=== PATIENT | male | born 2000 | race Caucasian/White ===

== ENCOUNTER 2024-07-02 11:15 | Emergency (ER) | payer OTHER, SELFPAY ==
--- NOTE | ~2024-07-02 | XR_ITS ---
EXAMINATION: XR finger 4th RT min 2V DATE: 07/02/2024 13:12 INDICATION: Nontraumatic pain at the right fourth digit TECHNIQUE: Dorsal palmar, lateral and oblique views of the right fourth digit were obtained. COMPARISON: None FINDINGS: Bone alignment is normal. No fracture. Joint spaces are normal. No cortical erosions or periosteal re action. There is soft tissue swelling at the right hand appears centered at the fourth proximal inter phalangeal joint. No soft tissue gas or radiopaque foreign bodies. IMPRESSION: 1. No osseous abnormality. Reviewed, dictated and finalized at location A. IMPRESSION: 1. No osseous abnormality.
[2024-07-02 12:12] VITALS: BP 120/60; PULSE 107; RESP 18; TEMP 37.1; O2SAT 98
--- NOTE | 2024-07-02 12:15 | PC.NURSE ---
Reports told to come to ED by UC because he probably has sepsis
[2024-07-02 12:36] LABS: Basophils Absolute Auto 0.1 K/mm3 (0.0-0.1); Basophils Percent Auto 0.3 % (0.2-1.2); Eosinophils Percent Auto 0.2 % (0-4.4); Hematocrit 48.1 % (42.0-52.0); Hemoglobin 15.9 g/dL (14.0-18.0); Immature Granulocyte Percent A 0.6 % (0-0.5); Lymphocytes Absolute Auto 1.22 K/mm3 (0.9-3.2); Lymphocytes Percent Auto 7.7 % (18.3-44.2); Mean Corpuscular HGB Conc 33.1 g/dl (32-36); Mean Corpuscular Hemoglobin 29.1 pg (26-34); Mean Corpuscular Volume 87.9 fl (80-100); Mean Platelet Volume 9.3 fl (7.4-10.4); Monocytes Absolute Auto 1.3 K/mm3 (0.1-0.6); Monocytes Percent Auto 8.4 % (2.6-8.5); Neutrophils Absolute Auto 13.2 K/mm3 (1.3-6.7); Neutrophils Percent Auto 82.8 % (45.5-73.1); Platelet Count Result 193 k/mm3 (150-375); Red Blood Count 5.47 M/mm3 (4.6-6.20); Red Cell Distribution Width 13.2 % (11.5-14.5); White Blood Count 15.9 K/mm3 (4.5-10.0)
--- NOTE | 2024-07-02 12:43 | ED.GENADULT ---
HPI - General Adult General Chief complaint: Skin/Abscess/Foreign Body Stated complaint: right ring finger swelling Time Seen by Provider: 07/02/24 12:43 Source: patient Mode of arrival: ambulatory Limitations: no limitations History of Present Illness HPI narrative: 23 years old white male came to the ED by private car complaining of pain, swelling of the right ring finger wake him up at o'clock in the morning. Patient have a Colles at the palmar side of that finger, patient been picking on it lately. Patient is healthy otherwise Related Data Allergies Allergy/AdvReac Type Severity Reaction Status Date / Time No Known Allergies Allergy Verified 07/02/24 11:18 Review of Systems Review of Systems: All systems reviewed & are unremarkable except as noted in HPI and below Exam Narrative: General appearance: Well-developed, well-nourished Skin: Normal color Head: Normocephalic, nontraumatic Eyes: Clear conjunctiva ENT: Oropharynx normal, ears normal, nose normal Neck: Supple, nontender Chest and respiratory: Airway patent, no respiratory distress, no accessory muscle use Heart: Regular rate/rhythm Abdomen: Soft, nontender, no organomegaly, quiet bowel sounds Vascular: Normal peripheral pulses, normal capillary refill. Musculoskeletal: Right ring finger exam showing diffuse tenderness, swelling, redness, warmth of the distal palm and proximal phalanx with yellowish discoloration superficially. Finger in a flexion position, unable to extend Neurologic: Alert and oriented ?3, THERMODYNAMICIST is normal as tested, no gross motor deficit Course Consultations Consultation #1: dr damon Not available over this week and Date: 07/02/24 Consultation #2: DR ANNE PLASTIC SURGEON AT [facility] WHO ACCEPTED PATIENT TRANSFER Date: 07/02/24 Consultation #3: DR HI ED AT [facility] WHO ACCEPTED PATIENT TRANSFER Date: 07/02/24 Vital Signs Vital signs: Vital Signs Temperature 37.1 C 07/02/24 12:12 Pulse Rate 107 H 07/02/24 12:12 Respiratory Rate 18 07/02/24 12:12 Blood Pressure 120/60 07/02/24 12:12 Pulse Oximetry 98 07/02/24 12:12 Oxygen Delivery Room Air 07/02/24 12:12 Temperature 37.1 C 07/02/24 12:12 Pulse Rate 107 H 07/02/24 12:12 Respiratory Rate 18 07/02/24 12:12 Blood Pressure 120/60 07/02/24 12:12 Pulse Oximetry 98 07/02/24 12:12 Oxygen Delivery Room Air 07/02/24 12:12 Medical Decision Making MDM Narrative Medical decision making narrative: Patient came to the ED with pain and swelling of the right 4th finger, Vital signs showing heart rate of 107 otherwise within normal limit Physical examination showing diffuse pain and swelling of the right 4th finger and of the hand around the finger at the dorsal side and the palmar side. Blood workup showing WBC of 15 point 9 otherwise insignificant X-ray of the right hand showed no acute osseous abnormality Patient received vancomycin IV prior to transferred to [facility]. Vital Signs Vital Signs: Vital Signs Temperature 37.1 C 07/02/24 12:12 Pulse Rate 107 H 07/02/24 12:12 Respiratory Rate 18 07/02/24 12:12 Blood Pressure 120/60 07/02/24 12:12 Pulse Oximetry 98 07/02/24 12:12 Oxygen Delivery Room Air 07/02/24 12:12 Temperature 37.1 C 07/02/24 12:12 Pulse Rate 107 H 07/02/24 12:12 Respiratory Rate 18 07/02/24 12:12 Blood Pressure 120/60 07/02/24 12:12 Pulse Oximetry 98 07/02/24 12:12 Oxygen Delivery Room Air 07/02/24 12:12 Lab Data 07/02/24 12:26 07/02/24 12:26 Labs: Lab Results 07/02/24 Range/Units 12:26 WBC 15.9 H (4.5-10.0) K/mm3 RBC 5.47 (4.6-6.20) M/mm3 Hgb 15.9 (14.0-18.0) g/dL Hct 48.1 (42.0-52.0) % MCV 87.9 (80-100) fl MCH 29.1 (26-34) pg MCHC 33.1 (32-36) g/dl RDW 13.2 (11.5-14.5) % Plt Count 193 (150-375) k/mm3 MPV 9.3 (7.4-10.4) fl Immature Gran % (Auto) 0.6 H (0-0.5) % Neut % (Auto) 82.8 H (45.5-73.1) % Lymph % (Auto) 7.7 L (18.3-44.2) % York % (Auto) 8.4 (2.6-8.5) % Eos % (Auto) 0.2 (0-4.4) % Baso % (Auto) 0.3 (0.2-1.2) % Lymph # (Auto) 1.22 (0.9-3.2) K/mm3 York # (Auto) 1.3 H (0.1-0.6) K/mm3 Eos # (Auto) 0.0 (0-0.3) K/mm3 Baso # (Auto) 0.1 (0.0-0.1) K/mm3 Abs Immat Gran (auto) 0.10 H (0.00-0.031) K/mm3 Absolute Neuts (auto) 13.2 H (1.3-6.7) K/mm3 Absolute Nucleated RBC 0.000 (0.0-0.012) K/mm3 Nucleated RBC % 0.0 (0.0-0.2) % ESR 1 (0-20) mm/hr Sodium 136 L (137-145) mmol/L Potassium 3.8 (3.4-5.0) mmol/L Chloride 99 (98-107) mmol/L Carbon Dioxide 27 (22-30) mmol/L Anion Gap 10 (4-12) mmol/L BUN 18 (9-20) mg/dL Creatinine 0.96 (0.7-1.3) mg/dL Estim Creat Clear Calc 121 ml/min Estimated GFR > 60 (59 - ) Glucose 98 (65-110) mg/dL Lactic Acid 1.1 (0.7-2.0) mmol/L Calcium 9.4 (8.4-10.2) mg/dL Total Bilirubin 2.0 H (0.2-1.3) mg/dL AST 46 (17-59) U/L ALT 31 (6-50) U/L Alkaline Phosphatase 90 (38-126) U/L C-Reactive Protein 1.0 (<1.0) mg/dL Total Protein 8.0 (6.3-8.2) g/dL Albumin 5.1 (3.5-5.1) g/dL Critical Care Time Critical Care Time Critical Care Time: Yes Total Critical Care Time: 30 Discharge Plan Discharge Clinical Impression: Finger infection Patient Disposition: Acute Care Hospital Condition: Stable Patient Language: Belizean Follow-up/Referrals: PHYSICIAN NOT ON STAFF,NONSTAFF [Primary Care Provider] -
[2024-07-02 12:45] LABS: Lactic Acid Reflex 1.1 mmol/L (0.7-2.0)
[2024-07-02 12:46] LABS: Alanine Aminotransferase 31 U/L (6-50); Albumin Level 5.1 g/dL (3.5-5.1); Alkaline Phosphatase 90 U/L (38-126); Anion Gap 10 mmol/L (4-12); Aspartate Amino Transferase 46 U/L (17-59); Blood Urea Nitrogen 18 mg/dL (9-20); Calcium 9.4 mg/dL (8.4-10.2); Carbon Dioxide 27 mmol/L (22-30); Chloride 99 mmol/L (98-107); Estimated CRCL calculation 121 ml/min; Estimated Glomerular Filt Rate > 60; Glucose 98 mg/dL (65-110); Potassium 3.8 mmol/L (3.4-5.0); Sodium 136 mmol/L (137-145)
--- OUTSIDE RECORDS SUMMARY | 2024-07-02 12:56 | XMS_ITS | Referral Summary ---
Author Organization [address] Address [address] [place] [id number] Care Team Providers Care Daycare Worker Name Role Phone Mulugeta Amaro MD Primary Care Provider Encounters Date Type Department Care Team Description 07/02/2024 10:45 AM CDT Office Visit [facility] at [address] [phone] Mary Grace Monreal NP Cellulitis of right upper extremity (Primary Dx); Tachycardia; Tachypnea from Last 3 Months Allergies No known active allergies Medications No known medications Active Problems No known active problems Social History Tobacco Use Types Packs/Day Years Used Date Smoking Tobacco: Never Assessed Sex and Gender Information Value Date Recorded Sex Assigned at Not on file Legal Sex Male 10:28 AM CDT Gender Identity Not on file Sexual Orientation Not on file Last Filed Vital Signs Vital Sign Reading Time Taken Comments Blood Pressure 102/68 07/02/2024 10:39 AM CDT Pulse 124 07/02/2024 11:04 AM CDT Temperature 36.9 C (98.5 F) 07/02/2024 10:39 AM CDT Respiratory Rate 30 07/02/2024 11:04 AM CDT Oxygen Saturation 97% 07/02/2024 10:39 AM CDT Inhaled Oxygen Concentration - - Weight 82.1 kg (181 lb) 07/02/2024 10:39 AM CDT Height - - Body Mass Index - - Plan of Treatment Not on file Insurance [employer] PPO Care Teams Daycare Worker Relationship Specialty Start Date End Date Mulugeta Amaro MD [address] [place] [id number] PCP - General Family Medicine 07/02/24
--- OUTSIDE RECORDS SUMMARY | 2024-07-02 12:56 | XMS_ITS | Encounter Summary ---
Author Organization [facility] Address [address] [place] [address] Care Team Providers Care Domain Architect Name Role Phone Mulugeta Amaro MD Primary Care Provider Reason for Visit * Reason Comments hand swelling Hand bruising, swell ing, pain and redness started this AM. Pt reports he woke up at 4am with pain and also he's been hot and cold over night Encounter Details Date Type Department Care Team (Late st Contact Info) Description 07/02/2024 10:45 AM CDT Office Visit [facility] at [address] [phone] Mary Grace Monreal NP [address] [place] [address] [address] [place] [address] Cellulitis of right upper extremity (Primary Dx); Tachycardia; Tachypnea Social History Tobacco Use Types Packs/Day Years Used Date Smoking Tobacco: Never Assessed Sex and Gender Information Value Date Recorded Sex Assigned at Not on file Legal Sex Male 10:28 AM CDT Gender Identity Not on file Sexual Orientation Not on file documented as of this encounter Last Filed Vital Signs Vital Sign Reading [...] - - Body Mass Index - - documented in this encounter Progress Notes * Mary Grace Monreal NP - 07/02/2024 10:45 AM CDT Images from the original note were not included. Subjective/Objective Patient ID: Aakash Lucas is a 23 y.o. male. This patient has verbally consented to recording this visit in order to utilize AI technology in generating this note. Chief Complaint hand swelling (Hand bruising, swelling, pain and redness started this AM. Pt reports he woke up at 4am with pain and also he's been hot and cold over night ) History of Present Illness Aakash Lucas is a 23 year old male who presents with an acute infection of the finger. He experienced sudden swelling of the finger at 4 AM, which progressed to involve the knuckles by 6:45 AM. There is no history of trauma or injury to the finger. Systemic symptoms include chills and sweats, with sensations of being hot and cold throughout the night. He has not taken any medication for pain or other symptoms today. He is visiting the area for the weekend. Patient denies any traumato area. Review of Systems All other systems reviewed and are negative. Physical Exam GENERAL: Generally unwell appearance. CARDIOVASCULAR: Tachycardia. EXTREMITIES: Infection of the finger. Physical Exam Vitals and nursing note reviewed. Exam conducted with a supervising editor news reel present (Patient's brother). Constitutional: General: He is awake. Appearance: He is ill-appearing. Musculoskeletal: Hands: Comments: Patient has significant pain to palpation, pain with movement of hand and fingers on right hand. Skin: General: Skin is moist. Coloration: Skin is pale. Neurological: Mental Status: He is alert. Psychiatric: Behavior: Behavior is cooperative. Vitals: 07/02/24 1039 07/02/24 1104 BP: 102/68 Pulse: 122 124 Resp: 24 30 Temp: 36.9 ??C (98.5 ??F) SpO2: 97% Weight: 82.1 kg (181 lb) No results found. No past medical history on file. No current outpatient medications on file. No Known Allergies Social History Tobacco Use Smoking status: Not on file Smokeless tobacco: Not on file Substance and Sexual Activity Drug use: Not on file Sexual activity: Not on file Alcohol Use: Not on file No past surgical history on file. Procedures Assessment/Plan 1. Cellulitis of right upper extremity (Primary) 2. Tachycardia 3. Tachypnea Results Assessment & Plan Sepsis Acute systemic infection with chills, sweats, and tachycardia. Meets sepsis criteria, life-threatening, requires immediate intervention. - Refer to ER for immediate evaluation and management. - Order blood work and blood cultures. - Initiate IV antibiotics in ER. - Consider imaging for bone involvement. Finger infection Acute finger infection with swelling to knuckles, contributing to systemic symptoms and potential sepsis. - Document and photograph affected hand. - Refer to ER for evaluation and treatment. Disposition Treatment plan including expectations, follow up, and return precautions discussed with patient/parent, verbalizes understanding. Medication dosage, use, and potential adverse reactions discussed with patient/parent. Advised to follow up with PCP if symptoms do not resolve as expected or sooner if condition worsens. Signs/symptoms warranting ER evaluation reviewed. Patient and/or guardian was given an opportunity to ask questions, questions answered. Mary Grace Monreal NP This office note has been partially dictated using [employer] software, and as a result portions of the record may have been created with this software. Occasional wrong-word or '[id number]' substitutions may have occurred due to the inherent limitations of voice recognition software. Read the chartcarefully and recognize, using context, where substitutions have occurred. documented in this encounter Plan of Treatment Not on file documented as of this encounter Visit Diagnoses Diagnosis Cellulitis of right upper extremity- Primary Tachycardia Unspecified tachycardia Tachypnea documented in this encounter Care Teams Domain Architect Relationship Specialty Start Date End Date Mulugeta Amaro MD [address] [place] [id number] PCP - General Family Medicine 07/02/24 documented as of this encounter
--- OUTSIDE RECORDS SUMMARY | 2024-07-02 12:56 | XMS_ITS | Clinical Summary ---
Author Organization [address] Address [address] [place] [phone] Care Team Providers Care Fuel Cell Builder Name Role Phone Mulugeta Amaro MD Primary Care Provider Allergies No known active allergies Medications No known medications Active Problems No known active problems Encounters Date Type Department Care Team Description 07/02/2024 10:45 AM CDT Office Visit [facility] at [address] [phone] Mary Grace Monreal NP Cellulitis of right upper extremity (Primary Dx); Tachycardia; Tachypnea from Last 3 Months Social History Tobacco Use Types Packs/Day Years Used Date Smoking Tobacco: Never Assessed Sex and Gender Information Value Date Recorded Sex Assigned at Not on file Legal Sex Male 10:28 AM CDT Gender Identity Not on file Sexual Orientation Not on file Obstetrics History Last Filed Vital Signs Vital Sign Reading [...] Mass Index - - Plan of Treatment Health Maintenance Due Date Last Done Comments Depression Screening 2000 Hepatitis C Screening 2000 Regular Well Visit/Exam 18-64 2018 Meningococcal B Vaccine (2 of 2 - Trumenba SCDM 2-dose series) 05/11/2019 11/09/2018 DTaP/Tdap/Td Vaccine (7 - Td or Tdap) 07/08/2022 07/08/2012, 09/02/2006, 05/17/2002, Additional history exists Covid-19 Vaccine ( season) 2023 05/19/2021, 06/19/2020, 05/29/2020 Influenza Vaccine (Season Ended) 2024 01/28/2013 Pneumococcal vaccine <65 Aged Out 002, 2000, 2000 No longer eligible based on patient's age to complete this topic Hepatitis B Screening Completed 11/23/2001 , 2000, 2000 Varicella Vaccines Completed 09/02/2006, 11/23/2001 HPV Vaccines Completed 08/08/2013, 01/10, 09/16/2012 [place] [address] [facility] PPO Care Teams Fuel Cell Builder Relationship Specialty Start Date End Date Mulugeta Amaro MD [address] [place], [place] [id number] PCP - General Family Medicine 07/02/24
--- OUTSIDE RECORDS SUMMARY | 2024-07-02 12:57 | XMS_ITS | Data Portability ---
Author Organization [facility], [address] 4[address] Neurology ([place]) Address [address] 4th [place] [address] Care Team Providers Care District Loss Prevention Manager Name Role Phone VANESSAMIHIR FARFAN Primary Care Provider Assessment Encounter Date Assessment Date Assessment LastModified by Organization Details LastModified Time 01/13/2024 01/13/2024 IMPRESSION: Difficulty urinating. PLAN: Will refer him for pelvic floor physical therapy. I do not see any sign of obstruction or infection. Follow up in 6 months. 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 It drained, but on examination, there is nothing. CT unremarkable. Should he have further urachal cyst, we would treat it surgically[facility] Not available 01/13/2024 20:34:04 04/11/2024 04/11/2024 Urachal cyst he reports drainage from his umbilicus on 3 separate occasions most recently a month ago. Unremarkable on physical exam today. CT was negative. Dr. Vaca stated if he continues have problems and we will treat it surgically. I will discuss this case with Dr. Jimenez. Difficulty urinating, urgency, nocturia cystoscopy with Dr. Vaca on 01/13/2024 was negative. He was referred to pelvic floor therapy and has appoint with them next week. HISTORY OF PRESENT ILLNESS: A pleasant 23-year-old gentleman who presents today for followup on urachal cyst. Negative cystoscopy with DR Vaca in January 2024 to evaluate weak urine stream, difficulty starting a stream. He was evaluated at Urgent Care on 11/19/2023 and was treated for an acute urinary tract infection with 14 days of ciprofloxacin 500 mg b.i.d. and tamsulosin 0.4 mg once daily for 30 days. Since then, he reports improvement of his symptoms. His initial symptoms were difficulty starting a stream, straining with urination. He denies dysuria, gross hematuria, frequency. He reports he had nocturia. He had PVR 2 mL. he did not fill out an IPSS score. Urinalysis on 11/19/2023 showed 2+ bacteria and 2+ protein, bur urine culture was negative. Supposedly, he was told by Urgent Care there was sperm in his urinalysis. Per their note, they were concerned about a fistula. He denies pneumaturia or debris in his urine. Nonsmoker. No report of family history of prostate cancer, bladder cancer, or kidney cancer. He denies hematospermia. PSA 0.260 on 12/04/2023. REVIEW OF SYSTEMS CONST: No fevers or chills. RESP: No shortness of breath. CV: No chest pain. GI: No nausea, vomiting. Reviewed pertinent past medical history, surgical history, family history, social history. No changes except as noted. PHYSICAL EXAM CONST: The patient is alert and oriented. In no acute distress. EYES: Extraocular movements are intact. RESP: No respiratory distress. Symmetric chest expansion. GI: Abdomen is soft and nontender. No suprapubic or flank tenderness. No drainage from the umbilicus. MSK: There is no peripheral edema. SKIN: Skin warm and dry. Reviewed pertinent diagnostic tests, lab work, and imaging. These were reviewed with the patient. [email or web address] Not available 04/11/2024 14:42:53 04/25/2024 04/25/2024 Physical therapy assessment: Patient presents with elevated resting pelvic floor tone and myofascial tightness in pelvic floor. Patient has poor awareness or motor control of the pelvic floor. Patient was guarded with palpation Comorbidities: Weak abdominal musculature from excessive weight loss with excessive skin tissue poor awareness of the pelvic floor and lower abdominals with weakness. As a result patient has difficulty with urination but has improved since symptoms began Patient to be seen 1-2 visits over the course of 3 weeks. Patient unable to keep coming and his symptoms have improved Treatment will consist of the following: Therapeutic exercise Relaxation of the pelvic floor reeducation of the pelvic floor lower abdominals strengthening Manual therapy Myofascial release as needed Home exercise program was issued today and will be updated each visit as patient tolerates The above rehabilitation plan has been prescribed and developed for the necessary care of this patient. Patient is in agreement with this plan. Thank you for this referral. [email or web address] Not available 06/05/2024 16:49:52 05/12/2024 05/12/2024 Physical therapy assessment: Patient returns today with poor pelvic floor awareness and elevated tone as well as impaired diaphragmatic breathing or release of the pelvic floor with inspiration and core strength in the abdominal wall and lower abdominals impairing core stability which could contribute to an elevated resting pelvic floor tone. Patient lost a lot of weight which might be the reason for the decreased core strength and lumbopelvic stability deficits. Today I increased his exercises to include core stabilization strengthening of the lower abdominals. I recommend continuing with diaphragmatic breathing in positions where the hips are relaxed and less stress on the pelvic floor followed by reeducation exercises for the pelvic floor. Plan: Discharge as patient has difficulty coming to therapy and for the most part the immediate symptoms of inability to urinate is better he just has a little hesitancy with starting his stream. Patient was advised to return to physical therapy if symptomology got worse Not available 06/08/2024 22:12:09 Plan of Treatment Reminders Order Date Submit Date Provider Last Modified By Organization Details Last Modified Time Details Appointments Establish ed Patient 10.EST 2024 04:45P M Dr. Buzz Vaca Not available Not available Not available New Patient Visit 10.NEW 2024 11:40A M Dr. Johanna Bergman Not available Not available Not available Lab culture + sensitivi ty, urine 2023 024 NAYELI Sc Only - [facility] Laboratory, [address] [place] [address], [id number], 01/14/2024 15:19:39 urinalysi s, complete 2023 024 [email or web address] Sc Only - Sc Laboratory, [facility] [place] [address], [id number], 01/14/2024 08:23:15 cytology, urine 2023 024 [email or web address] Sc Only - Sc Laboratory, [address] [place] [address], [place], [address], 01/14/2024 08:23:15 Referral pelvic floor therapy referral - Difficult y urinating , hesitancy , urgency, nocturia 2023 024 Pelvic Floor/Therapy , [address], [place], [address], 02/29/2024 14:47:56 Procedures None recorded. Surgeries None recorded. Imaging electroca rdiogram, routine ECG, 12 leads min 2024 025 NAYELI Pr Only - Pr Cardiology Ekg, [address], [address] [address], [place], [address], 05/19/2024 17:15:32 Medication Orders naproxen 500 mg tablet,de layed release 2024 025 [id number], [address] [place], [id number], 05/19/2024 17:03:26 Bactrim DS 800 mg-160 mg tablet 2023 025 [id number], [address] [place], [place], [id number], 05/19/2024 16:49:50 Patient Targets Encounter Date Encounter Id Patient Goals Patient Target Last Modified By Organization Details Last Modified Time Goals:LTG's to be met in 3 weeks 2 visits 1.Independent with HEP Rehab potential: goodPatients goal: teach HEP for strengthening the lower abdominals with poor and reeducating the pelvic floor for relaxation and reeducation of strength [email or web address] Not available 06/05/2024 16:44:03 Patient Instructions Encounter Date Encounter Id Patient Instructions Last Modified By Organization Details Last Modified Time 05/19/2024 [id number] Subjective: HPI: Aakash is a very pleasant 23-year-old male who is here today with his ongoing chest wall discomfort/chest pain for the last few months. He notes that he started noticing this in October. It only ever occurs on the left side of his chest wall but can be in a different range of places. This pain never radiates down to his arm or up his neck. He describes it as more of an aching pain and at the worst is anywhere from a 5-7 on a pain scale of 1-10. Sometimes it happens when he exercises but he can also exercise without it happening. This will also happen when he is at rest. Nothing makes this better or worse. He can go a few days without it at times but it is pretty consistent. He declines any nausea, dizziness, shortness of breath with any of these episodes. He has been working out quite a bit lately and does weight training 3-4 times a week and cardio on the other days. He does note that he smokes marijuana daily. He declines any other cardiac history or history of acid reflux. He never feels as though he has palpitations or like his heart is racing. He has not taken anything [id number]. ROS as noted in HPI. Objective: GENERAL: Patient is alert and oriented and in no acute distress. Normal mood and affect. CARDIOVASCULAR: Regular rate and rhythm, S1 and S2 without splitting. No murmur or rub. No pain with palpation of chest wall. LUNGS: Quiet and regular respirations. Clear to auscultation in all lung castaneda. No rhonchi, rales, or wheezing. EXTREMITIES: No cyanosis, clubbing, or edema. 2+ dorsalis pedis and posterior tibial pulses bilaterally. Plan: 1. We will get an EKG today to get a baseline heart rhythm. I do not think we need to check any blood work today because he is not currently having the symptoms. I would also like to do a 2-week trial of an anti-inflammatory. I sent in naproxen above. Discussed that it is possible this is related to the chest wall so I want to see if this helps at all. 2. If the EKG comes back normal and the anti-inflammatory does not help his symptoms then we may consider blood work or even possibly doing a trial of a PPI. If this does not help either then we will refer to cardiology. Patient will call with any worsening symptoms or if symptoms do not improve. Patient verbalized understanding and is very agreeable plan of care. [email or web address] Not available 05/19/2024 17:08:56 Reason for Referral Pelvic Floor Therapy Referra l for Difficulty passing urine Difficulty urinating, hesitancy, urgency, nocturia Referring Physician: Buzz Vaca, Urology, Encounter Date: 01/13/2024 Results Created Date Observation Date Name Description Value Unit Range Abnormal Flag Note LastModifiedBy Organization Detail LastModifiedTime 01/13/20 24 01/13/2024 urina lysis , compl ete urinalysis, complete LOW LEVEL S OF HEMOG LOBIN IN ABSEN CE OF HEMAT URIA MAY NOT BE CLINI TANESHA SIGNI ISAEL TJasmine Not Available Pr Only - Pr Laboratory [address], [address], 01/13/2024 17:58:29 01/13/20 24 01/13/2024 urina lysis , compl ete color YELLOW Not Available Pr Only - Pr Laboratory [address] [place] [address], [address], 01/13/2024 17:58:29 01/13/20 24 01/13/2024 urina lysis , compl ete clarity CLEAR Not Available Pr Only - Pr Laboratory [address] [place] [address], [address], 01/13/2024 17:58:29 01/13/20 24 01/13/2024 urina lysis , compl ete pH 6.5 5.0-7. 5 Not Available Pr Only - Pr Laboratory [address] [place] [address], [address], 01/13/2024 17:58:29 01/13/20 24 01/13/2024 urina lysis , compl ete specific gravity 1.012 1.000- 1.030 Not Available Pr Only - Pr Laboratory [address] [place] [address], [address], 01/13/2024 17:58:29 01/13/20 24 01/13/2024 urina lysis , compl ete blood 1+ negati ve abnormal Not Available Pr Only - Pr Laboratory [address] [place] [address], [address], 01/13/2024 17:58:29 01/13/20 24 01/13/2024 urina lysis , compl ete bilirubin NEGATI VE negati ve Not Available Pr Only - Pr Laboratory [address] [place] [address], [address], 01/13/2024 17:58:29 01/13/20 24 01/13/2024 urina lysis , compl ete urobilinogen 0.2 0.2-1. 0 Not Available Pr Only - Pr Laboratory [address] [place] [address], [address], 01/13/2024 17:58:29 01/13/20 24 01/13/2024 urina lysis , compl ete ketone NEGATI VE negati ve Not Available Pr Only - Pr Laboratory [address] [place] [address], [address], 01/13/2024 17:58:29 01/13/20 24 01/13/2024 urina lysis , compl ete glucose NEGATI VE negati ve Not Available Pr Only - Pr Laboratory [address] [place] [address], [address], 01/13/2024 17:58:29 01/13/20 24 01/13/2024 urina lysis , compl ete protein NEGATI VE negati ve Not Available Pr Only - Pr Laboratory [address] [place] [address], [address], 01/13/2024 17:58:29 01/13/20 24 01/13/2024 urina lysis , compl ete nitrite NEGATI VE negati ve Not Available Pr Only - Pr Laboratory [address] [place] [address], [address], 01/13/2024 17:58:29 01/13/20 24 01/13/2024 urina lysis , compl ete leukocytes NEGATI VE negati ve Not Available Pr Only - Pr Laboratory [address] [place] [address], [address], 01/13/2024 17:58:29 01/13/20 24 01/13/2024 urina lysis , compl ete RBC 6-10 0-2/hp f abnormal Not Available Pr Only - Pr [facility] [address] [place] [address], [address], 01/13/2024 17:58:29 01/13/20 24 01/13/2024 urina lysis , compl ete WBC 0-5 0-5/hp f Not Available Pr Only - Pr Laboratory [address] [place] [address], [address], 01/13/2024 17:58:29 01/13/20 24 01/13/2024 urina lysis , compl ete squamous epithelial 0-2 0-10/h pf Not Available Pr Only - Pr Laboratory [address] [place] [address], [address], 01/13/2024 17:58:29 01/13/20 24 01/13/2024 urina lysis , compl ete bacteria NONE SEEN none Not Available Pr Only - c Laboratory [address] [place] [address], [address], 01/13/2024 17:58:29 01/13/20 24 01/13/2024 urina lysis , compl ete hyaline cast 3-5 0-2/lp f abnormal Not Available Pr Only - [facility] [address] [place] [address], [address], 01/13/2024 17:58:29 01/13/20 24 01/13/2024 NON-G YN CYTOL OGY ngyn Perfo rmed at: [facility] Order ing Provi yoon: Christina r, Clemente t Carolina nt Name: KAIN PETERS #: [id number] /A ge/Ge nder: 001 (Age: 23) / M Proce dure Date: 2023 SP ECIME N RECEI CARLITOS * Urine , not other mccurdy speci fied Speci men Adequ acy Satis facto ry for evalu ation Cytol ogic Diagn osis Negat komal for high- grade uroth elial carci noma [facility] EL ECTRO NICAL LY VERIF IED BY TAHIRA REID MD 2023 16:05 CL INICA L HISTO RY Diffi culty urina ting GR OSS DESCR IPTIO N 45 mLs of unfix ed, yello w fluid is submi tted for cytol ogic evalu ation . 1 cytoc entri fuge prepa ratio n is evalu ated. END OF REPOR T Not Available Pr Only - [facility] [address] [place] [address], [address], 01/14/2024 17:05:48 01/13/20 24 01/15/2024 cultu re + sensi tivit y, urine urine culture and sens. JARROD L URINE No growt h after overn ight incub ation No growt h after 2 night s incub ation Not Available Pr Only - Pr Laboratory [address] [place] [address], [address], 01/15/2024 10:59:28 01/13/20 24 01/13/2024 cytol ogy, urine urine cytology * Speci men colle cted and sent out for testi ng by [facility]. Resul ts will flow into the elect ronic recor d and the provi yoon will recei ve a 'Revi ew Docum ent' task at that time. Not Available Pr Only - Pr Laboratory [address] [place] [address], [address], 01/13/2024 14:46:43 01/13/20 24 01/14/2024 cultu re + sensi tivit y, urine urine culture and sens. PREL IM URINE No growt h after overn ight incub ation Not Available Pr Only - Pr Laboratory [address] [place] [address], [address], 01/14/2024 15:19:39 12/25/19 24 12/25/2023 CT, abdom en + pelvi s, w/ contr ast [facility]st [address] [address] Teleph one [phone] Name: Aakash Monterroso 1316Ex am Date: 2023 Age: 23Phys ician: César, PAC, Sunshine sa : 2000Ex aminat ion: CT ABD/PE L W CT OF THE ABDOME N AND PELVIS HISTOR Y: Perium bilica l abdomi nal pain for a few weeks. Draina ge. TECHNI QUE: CT of the abdome n and pelvis was perfor med with oral and IV contra st admini strati on. 100 ml of Isovue -370 was inject ed throug h right antecu bital fossa withou t eviden ce of advers e reacti on. Automa clyde exposu re contro l was used as a dose optimi zation techni que for the examin ation. COMPAR DANISHA: None The lung bases are clear. The heart is normal in size. There is no worris ome liver lesion . There is no biliar y ductal dilata tion. The spleen , pancre as, and adrena l glands appear normal . No hydron ephros is is seen. There is no bowel obstru ction. The append ix is not defini tively visual ized. There are no second levi signs of append icitis seen. There is no bowel obstru ction. No CT eviden ce of a patent brachi al is seen. No worris ome lympha denopa thy. No free air or free fluid is seen. There is no worris ome bone lesion . Abdomi nal aorta is normal in calibe r. IMPRES SABINE: No acute intra- abdomi nal proces s. Electr onical ly signed in Briceno cribe by: VESNA Nick on: 4 1:02 PM cc: Page PAGE 1 of [facility] 1 Pr Only - Pr Radiology [address] [place] [address], [address], 12/25/2023 20:22:51 05/20/19 25 05/19/2024 elect rocar diogr am, routi ne ECG, 12 leads min No observ ation record ed. [email or web address] Sc Only - [facility] [address] [address], [place], [address], 05/19/2024 17:31:52 05/21/19 25 05/19/2024 elect rocar diogr am, routi ne ECG, 12 leads min No observ ation record ed. [email or web address] Sc Only - [facility] [address] [address], [place], [address], 05/20/2024 12:02:08 Result Notes None recorded. Problems Name Problem SNOMED Code Status Onset Date Resolution Date Notes Provider Name and Address Organization Details Recorded Time Urinary symptoms 410659548 Active 2023 Radha Cabrales [facility] 4 18:36:59 Acute urinary tract infection 830973444 Active 2023 Savannah Esparza, JOINER [address] [place] [address], [address] , [facility] 4 19:34:56 Prostatiti s 9499817 Active 2023 Hortencia Solano [facility] 4 12:11:55 Lower urinary tract symptoms 510078449 Active 2023 Keren Mcintosh [facility] 4 13:06:57 Difficulty passing urine 215926821 Active 2023 Cheyenne Donis, DPT [address] [place] [address], [address] , [facility] 5 22:03:51 Urgent desire to urinate 83851871 Active 2023 [facility] 4 19:32:49 Nocturia 722646227 Active 2023 [facility] 4 19:32:56 Nasal congestion 88965549 [facility] 2023 [facility] 4 18:29:31 Acute bronchitis 65969711 Active 2023 Lloyd Sanchez MD [address] [place] [address], [address] , [facility] 4 18:47:47 Umbilical hernia 056041965 Active 2023 Kaitlin Lindsey PA-C [address] [place] [address], [address] , [facility] 4 16:02:34 Umbilical pain 39059567 Active 2023 Chayito Calvert [facility] 4 13:05:41 Umbilical pain 62772457 Active 2023 [facility] 4 13:05:41 Impacted cerumen in right ear 5212677939937 103 Active 2023 Hernando Chappell MD [address] [place] [address], [address] , [facility] 4 11:17:02 Acute right otitis media 117682930 Active 2023 Hernando Chappell MD [address] [place] [address], [address] , [facility] 4 11:17:12 Chronic otitis media of right ear 1566187123743 107 Active 2023 Theresa Bishop [facility] 4 12:51:27 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 Procedures Surgical History Date Name Laterality Status Provider Name and Address Organization Details Recorded Time SC Procedure completed Charlene Morataya [facility] 01/13/2024 20:33:31 Imaging Results Imaging Date Name Status LastModified by Organiz ation Details LastModified Time 12/25/2023 CT, abdomen + pelvis, w/ contrast completed Pr Only - Sc Radiology [address], [place], [address], 12/25/2023 20:22:51 05/19/2024 electrocardio gram, routine ECG, 12 leads min completed [email or web address] Pr Only - [facility] [address] [address], [place], [address], 05/19/2024 17:31:52 05/19/2024 electrocardio gram, routine ECG, 12 leads min completed [email or web address] Pr Only - [facility] [address] [address], [place], [address], 05/20/2024 12:02:08 Procedure Notes None recorded. Medical Equipment None Reported. Allergies No known drug allergies Medications Name Sig Start Date Stop Date Status Note LastModified by Organization Details LastModified Time azithromycin 250 mg tablet TAKE 2 TABLETS (500 MG) BY ORAL ROUTE ONCE DAILY FOR 1 DAY THEN 1 TABLET (250 MG) BY ORAL ROUTE ONCE DAILY FOR 4 DAYS 11/18 completed Not Available Not Available Not Available benzonatate 200 mg capsule TAKE 1 CAPSULE BY MOUTH THREE TIMES DAILY FOR 5 DAYS 11/18 completed Not Available Not Available Not Available ciprofloxaci n 500 mg tablet TAKE 1 TABLET BY MOUTH EVERY 12 HOURS 12/03 completed Not Available Not Available Not Available sulfamethoxa zole 800 mg-trimethop rim 160 mg tablet TAKE 1 TABLET BY MOUTH EVERY 12 HOURS FOR 10 DAYS 01/01 completed Not Available Not Available Not Available tamsulosin 0.4 mg capsule Take 1 capsule every day by oral route. 05/19 completed Not Available Not Available Not Available naproxen 500 mg tablet,delay ed release TAKE 1 TABLET BY MOUTH TWICE DAILY FOR 14 DAYS active Not Available Not Available No t Available omeprazole 20 mg capsule,wilber yed release TAKE 1 TABLET EVERY DAY IN THE MORNING 30 MINS BEFORE OTHER FOODS 2024 active Not Available Not Available Not Avai lable amoxicillin 875 mg-potassium clavulanate 125 mg tablet TAKE 1 TABLET BY MOUTH EVERY 12 HOURS FOR 7 DAYS 05/19 completed Not Available Not Available Not Available Vitals Date Recorded Body height Body mass index (BMI) Body weight Heart rate Respiratory rate Oxygen saturation Oxygen saturation in Arterial blood by Pulse oximetry Provider Name and Address Organization Details Last Updated DateTime 4 190.5 cm 23 kg/m2 73400 g 107 /min 18 /min 93 % 93 % Damaris Crandall [facility] 4 13:29:17 Date Recorded Body height Body mass index (BMI) Body weight Heart rate Oxygen saturation Oxygen saturation in Arterial blood by Pulse oximetry Provider Name and Address Organization Details Last Updated DateTime 5 190.5 cm 23.1 kg/m2 49035.1 5 g 60 /min 99 % 99 % Es Barahona [facility] 5 14:14:37 Date Recorded Body height Body mass index (BMI) Body weight Heart rate Oxygen saturation Oxygen saturation in Arterial blood by Pulse oximetry Systolic blood pressure Diastolic blood pressure Provider Name and Address Organization Details Last Updated DateTime 5 190.5 cm 22.7 kg/m2 88547.8 1 g 56 /min 99 % 99 % 128 mm[Hg] 84 mm[Hg] [facility] 5 16:49:23 Social History None recorded. Functional Status None recorded. Mental Status None recorded. Family History Nothing Reported. Medical History No medical history recorded. Immunizations Vaccine Type Date Status Note Provider Nam e and Address Organization Details Recorded Time Hib-Hep B 1 completed [facility] 05/19/2023 18:25:26 Hib-Hep B 2 completed [facility] 05/19/2023 18:25:26 Hib-Hep B 1 completed [facility] 05/19/2023 18:25:26 meningococcal B, recombinant 9 completed Elsy [place] null, [facility] 05/19/2023 18:25:26 IPV 3 completed [facility] [place] [facility] 18:25:26 IPV 7 completed Elsy [place] [facility] 05/19/2023 18:25:26 IPV 1 completed [facility]23 18:25:26 IPV 1 completed [facility] [place] [facility] 05/[facility]/2023 18:25:26 MMR 2 completed [facility]2023 18:25:26 MMRV 7 completed [facility] [place] [facility]2023 18:25:26 COVID-19, mRNA, LNP-S, PF, 30 mcg/0.3 mL dose 1 completed [facility]23 18:25:26 COVID-19, mRNA, LNP-S, PF, 30 mcg/0.3 mL dose 1 completed [facility]23 18:25:26 COVID-19, mRNA, LNP-S, PF, 30 mcg/0.3 mL dose, juan-sucrose 2 completed [facility]23 18:25:26 pneumococcal conjugate PCV 7 2 completed [facility]23 18:25:27 pneumococcal conjugate PCV 7 1 [facility] pneumococcal conjugate PCV 7 1 [facility]:25:27 Tdap 3 completed Elsy Nazario null, [facility] 05/19/2023 18:25:27 varicella 2 completed Elsy Nazario null, [facility] 05/19/2023 18:25:27 Influenza, split virus, trivalent, preservative 3 completed Elsy [place] null, [facility] 05/19/2023 18:25:27 HPV, quadrivalent 4 completed Elsy Nazario null, [facility] 05/19/2023 18:25:27 HPV, quadrivalent 3 completed Elsy [place] null, [facility] 05/19/2023 18:25:27 HPV, quadrivalent 3 [facility] 18:25:27 Hep A, adult 3 completed Elsy Nazario null, [facility] 05/19/2023 18:25:27 Hep A, ped/adol, 2 dose 5 completed Elsy Nazario null, [facility] 05/19/2023 18:25:27 meningococcal MCV4P 3 [facility] 18:25:27 meningococcal MCV4P 9 completed Elsy Nazario null, [facility] 05/19/2023 18:25:27 DTaP 2 completed Elsy [place] null, [facility] 05/19/2023 18:25:27 DTaP 3 completed Elsy [place] null, [facility] 05/19/2023 18:25:27 DTaP 7 completed Elsy Nazario null, [facility] 05/19/2023 18:25:27 DTaP 1 completed Elsy [place] null, [facility] 05/19/2023 18:25:27 DTaP 1 completed Elsy [place] [facility] 05/19/2023 18:25:27 Past Encounters Encounter ID Performer Location Encounter Start Date Encounter Closed Date Diagnosis/Indication Diagnosis SNOMED-CT Code Diagnosis ICD10 Code Diagnosis Note [id number] Lloyd Sanchez MD [facility] ([place]) [address] [place] [address] 05/19/2023 18:24:12 05/19/2023 19:00:07 Nasal congestion 61712949 R09.81 Acute bronchitis 0714021 2 J20.9 [id number] Savannah Esparza APRN Urgent [facility]) [address] [place] [address] 11/19/2023 18:19:09 11/19/2023 19:53:50 Urinary symptoms 413551808 R39.9 Acute urin levi tract infection 562957359 N39.0 [id number] Mariely Krishna PA-C [address] [place] [address] Urology ([place]) [address] [place] [address] 12/04/2023 11:17:52 12/04/2023 12:45:55 Difficulty passing urine 111813537 R39.198 Urgent [place] to urinate 60953662 R39.15 Nocturia 399488891 R35.1 [id number] Kaitlin Lindsey PA-C [address] ([place]) [address] [place] [address],[address] [place] [address] 12/08/2023 15:28:01 12/08/2023 17:31:10 Umbilical hernia 447265079 K42.9 Umbilical pain 74210506 R10.33 [id number] Hernando Chappell MD [facility] [place] ([place]) [address] [place] [address] 01/02/2024 10:32:41 01/02/2024 12:42:17 Impacted cerumen in right ear [id number] 887187 H61.21 Acute righ t otitis media 632389971 H66.91 [id number] Buzz Vaca MD [address] [place] [address] Urology ([place]) [address] [place] [address] 01/13/2024 13:00:43 01/13/2024 14:36:39 Difficulty passing urine 295700394 R39.198 [id number] Mariely Krishna, ARANZA [address] ([place]) [address] [place] [address] 04/11/2024 13:55:29 04/11/2024 15:02:41 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 Urgent [place]ato to urinate 48732888 R39.15 Nocturia 003113195 R35.1 [id number] Cheyenne Donis, DPT [address] ([place]) [address] [place] [address] 04/25/2024 12:02:31 04/25/2024 13:18:46 Difficulty passing urine 855389281 R39.198 [id number] Cheyenne Donis, DPT [address] ([place]) [address] [place] [address] 05/12/2024 09:02:22 05/12/2024 13:46:05 Difficulty passing urine 414928715 R39.198 [id number] NANCY CASTRO APRN [address] ([place]) [address] [place] [address],[address] [place] [address] 05/19/2024 16:42:55 05/19/2024 17:31:22 Chest discomfort 429080334 R07.89 Health Concerns Section Related Observation LastModified by Organization Detai ls LastModified Time None Recorded Concern Status LastModified by Organization Details LastModified Time None Recorded Advance Directives Directive None Recorded Payers Insurance Date Sequence Insurance Name Policy Number Policy Montaño Covered Member ID Montaño Member ID Guarantor Name 06/10/2024 1 [employer] (POS) [id number] Aakash Lucas [id number] Aakash Lucas 06/03/2024 PAYMENT PLAN Aakash Lucas Notes Date Note Type Note Provider Name and Address Organization Details Recorded Time 01/13/2024 text/html A 23-year-old wi th difficulty urinating, urgency, nocturia, on Flomax. He comes in for cystoscopy. PSA 0.260 on 12/04/2023. Buzz Vaca MD [address] [place] [address], [phone], [place] [facility] 01/15/2024 06:55:07 04/25/2024 text/html Chief complaint/onset/sym ptom progression:Patient is a 23-year-old male here today with a diagnosis of difficulty with urination. Patient is referred by Dr. Vaca in urology. Onset of symptoms began in November with a visit to urgent care. Patient was having extreme difficulty with emptying his bladder. He tested positive for bacteria and protein in the urine. Apparently he also had sperm in his urine which prompted them to consider fistula. His culture was negative. He was treated by urgent care for urinary tract infection. He was then referred on to Dr. Vasquez's physician recruitment and outreach assistant in November. His symptoms have gotten better by that time. His postvoid residual was 2 mL. They went through with cystoscopy which was negative for any positive clinical findings including any fistula.. Today he reports significant improvement since November but still has trouble with starting a stream of urine and completely emptying his bladder without straining or pushing. This occurs 10% of the time. Pertinent past medical history: Patient sees chiropractor for regular adjustments in his neck and upper back but has not in the last few months. Patient lost 130 pounds between 2021 and 2023.Umbilical hernia Bladder habits/symptoms: Voiding frequency: Every hour to 2 hours currently and this has been his normal pattern Voiding frequency at night: 1-2 times at night. This is normal for him he was going 3-5 times a night Voiding sitting down does help.Sounds like to me that he probably pushes to urinate majority of the time but there are times when he pushes and it is still difficult to completely empty or initiate a stream of urine. 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 He does do exercises given to him from the chiropractor. Lifestyle/quality of life: Pain with ejaculation. Patient's symptoms bother him they are occurring about 10% of the time so not necessarily holding them back from doing anything he normally would Cheyenne Donis, KATHY [address] [place] [address], [phone], [facility] 06/05/2024 16:50:28 05/12/2024 text/html Patient returns to physical therapy for the diagnosis of difficulty with urination. Patient denies any symptoms. His difficulty with urination has resolved. He occasionally has hesitancy with urination. He is here for home exercise program for elevated resting pelvic floor tone and poor awareness or coordination of the pelvic floor. Patient is here for only 1 visit as it is difficult to take off work when there is not active complaints impairing ability to empty his bladder just hesitancy. Cheyenne Donis DPT [address] [place] [address], [phone], [facility] 06/08/2024 22:51:02
[2024-07-02 13:32] LABS: Erythrocyte Sedimentation Rate 1 mm/hr (0-20)
[2024-07-02] MEDS: VANCOMYCIN 1,500 MG/NS 500 ML 1,500 MG/500 ML BAG 250 MG IVPB (13:48)
== END 2024-07-02 14:41 | disposition short-term general hospital (02) ==
PROVIDERS: Emergency Medicine; Emergency Provider Emergency Medicine
DX: L08.9 Local infection of the skin and subcutaneous tissue, unspecified (principal)
CPT/HCPCS: 36415; 73140; 80053; 83605; 85025; 85652; 86140; 96365; 96366; 99285; J3370